=== PATIENT | male | born 1965 | race Caucasian/White ===

== ENCOUNTER 2019-08-17 13:15 | Emergency (ER) | payer OTHER, BC ==
[~2019-08-17] VITALS: Ht 170.2 cm; Wt 108.9 kg
[~2019-08-17 13:15] MED LIST: AMIT10 PO; GLIP5 PO; HYDR1TAB94 PO; LISI5 PO; MELO7.5 PO; METF500C PO; PRAV20 PO
== END 2019-08-17 15:10 | disposition home or self-care (01) ==
LOC: ER 13:15
DX: S63.502A Unspecified sprain of left wrist, initial encounter (principal); E11.9 Type 2 diabetes mellitus without complications; Z79.899 Other long term (current) drug therapy; Z87.891 Personal history of nicotine dependence; X58.XXXA Exposure to other specified factors, initial encounter
CPT/HCPCS: 29125; 73090; 73130; 82947; 96372-59; 99283-25; A9270-GY; J1885